=== PATIENT | female | born 1980 | race Caucasian/White ===

== ENCOUNTER → 2021-06-27 10:26 | Outpatient (BNVA) | payer OTHER, SELFPAY | PROVIDERS: Family Provider Family Medicine; PCP Family Medicine; Visit Provider Nurse Practitioner Family | DX: Z20.822 Contact with and (suspected) exposure to COVID-19 (principal); J06.9 Acute upper respiratory infection, unspecified | CPT/HCPCS: 87635 ==

== ENCOUNTER 2022-03-08 15:11 | Emergency (ER) | payer OTHER, SELFPAY ==
[2022-03-08 15:34] VITALS: BP 138/90; PULSE 93; RESP 18; TEMP 36.7; O2SAT 96; BMI 41.1
--- NOTE | 2022-03-08 15:41 | W.ED.WEAKNES ---
HPI - Weakness General: Chief complaint: Weakness Stated complaint: SOB/Nausea/extreme drowsiness/high pulse Time Seen by Provider: 03/08/22 15:41 History of Present Illness: Ms. Campos is a 42-year-old lady with significant past medical history of lupus on Plaquenil who presents emerged department due to generalized illness. Onset of symptoms was subacute approximately 4 days ago. She endorses generalized malaise, aches, lightheadedness, diarrhea worse than her baseline IBS, and decreased p.o. intake. No significant associated abdominal tenderness. She does have cough but no other specific respiratory symptoms. Intensity symptoms is moderate to severe. Course has been worsening. She she felt so lightheaded that she felt however denies loss of consciousness or head strike. She has noticed variability in her blood sugar as well as blood pressure. No other specific changes in health, exacerbating, or alleviating factors identified. Complaint: generalized weakness Onset (ago): day(s) Duration: progressively worsening Severity: moderate Review of Systems General: Reports: 10 or more systems reviewed and unremarkable except in HPI and below PFSH ED PFSH: Medical History (Updated 03/08/22 @ 20:11 by Jordan Cox MD) IBS (irritable bowel syndrome) Lupus Surgical History (Updated 03/08/22 @ 16:10 by Jordan Cox MD) H/O: hysterectomy Social History (Updated 03/08/22 @ 16:04 by Jordan Cox MD) Smoking and tobacco status: current every day smoker Physical Exam Const: COMMON NORMALS: alert GENERAL APPEARANCE: cooperative, well developed and ill appearing (somewhat) HENMT: COMMON NORMALS: normocephalic and atraumatic HEAD & SCALP: normocephalic and atraumatic Eye: COMMON NORMALS: conjunctivae normal CONJUNCTIVA: Yes conjunctivae normal SCLERA: sclerae normal Neck/C-Spine: COMMON NORMALS: supple GENERAL: Yes trachea midline Resp: EFFORT & INSPECTION: Yes able to speak in complete sentences AUSCULTATION: diminished lung sounds Cardio: COMMON NORMALS: regular rate and regular rhythm RATE: regular rate RHYTHM: regular rhythm GI: COMMON NORMALS: Soft to palpation PALPATION: Yes Soft to palpation and No Tenderness to palpation present (GI) PERCUSSION: normal to percussion Extremity: GENERAL: Yes normal exam except as noted and No edema Neuro: COMMON NORMALS: moves all extremities SENSORIUM/ORIENTATION: Yes alert and No Orientation impaired Psych: COMMON NORMALS: mental status grossly normal and Normal thought process present THOUGHT PROCESS: Normal thought process present Course ED course: - Patient was seen and evaluated by me at bedside - Patient placed on cardiac monitors, IV access obtained - Initial evaluation notable for exam as above - Labs and xrays personally interpreted by me -Fluids and symptom treatment ordered. - Labs notable for mild leukocytosis, hemoconcentration. Metabolic panel without acute electrolyte derangement. No evidence of UTI. Positive for coronavirus non-Covid 19. - Imaging notable for no lobar consolidation or pneumothorax - Upon serial reexamination after treatment the patient was improved though patient subsequently developed headache which was treated with migraine cocktail with improvement. - Based on patient history, evaluation, and testing as interpreted the most likely cause of the patient's condition is acute viral syndrome - The results of ED evaluation were discussed with the patient including prescriptions and/or symptomatic cares (if applicable) including appropriate and responsible use, followup plan, and return precautions. The patient verbalized understanding and felt safe for discharge. - Patient discharged in satisfactory condition. Note: Click bubbles or prepopulated peoples in note writing are used for assistance with data collection and billing and are inherently more limited than narrative and other text portions of this note. Please use narrative for additional clinical history and defer to narrative/free test for any case of contradictory information. If information appears in only free text or click bubble it should be considered present or absent as reported. Please contact note short story writer for clarifications of clinical information or contradictory information. MDM is a brief summary, contradictory or erroneous seeming information should be clarified and full note should be reviewed. Vital Signs: Vital signs: Vital Signs Temperature 98.1 F 03/08/22 15:34 Pulse Rate 90 03/08/22 20:23 Respiratory Rate 16 03/08/22 20:23 Blood Pressure 96/62 03/08/22 20:23 Pulse Oximetry 97 03/08/22 20:23 MDM - Weakness Medical Decision Making 42-year-old lady on Plaquenil for lupus presenting with generalized illness. Patient found to have coronavirus that is not COVID-19. Improved with symptom treatment including migraine cocktail. Satisfactory for outpatient management. Medical Records I reviewed the patient's medical records. Lab Data I reviewed the patient's lab results. : 03/08/22 15:55 03/08/22 15:55 Radiology Impressions Chest X-Ray 03/08/22 15:51 IMPRESSION: No acute pulmonary abnormality. Laboratory Results WBC 12.6 10^3/uL (4.0-10.0) H 03/08/22 15:55 RBC 5.14 10^6/uL (4.1-5.3) 03/08/22 15:55 Hgb 15.8 g/dL (11.5-15.3) H 03/08/22 15:55 Hct 46.4 % (37.0-47.0) 03/08/22 15:55 MCV 90.3 fl (81-99) 03/08/22 15:55 MCH 30.7 pg (28.0-34.0) 03/08/22 15:55 MCHC 34.1 g/dL (30.0-36.0) 03/08/22 15:55 RDW 12.2 % (12.1-15.1) 03/08/22 15:55 Plt Count 303 10^3/cmm (130-400) 03/08/22 15:55 MPV 8.9 fL (7.4-10.4) 03/08/22 15:55 Neut % (Auto) 64.7 % 03/08/22 15:55 Lymph % (Auto) 24.5 % 03/08/22 15:55 [place] % (Auto) 6.4 % 03/08/22 15:55 Eos % (Auto) 3.7 % 03/08/22 15:55 Baso % (Auto) 0.5 % 03/08/22 15:55 Neut # (Auto) 8.14 10^3/uL (1.8-7.7) H 03/08/22 15:55 Lymph # (Auto) 3.1 10^3/uL (0.8-4.8) 03/08/22 15:55 [place] # (Auto) 0.8 10^3/uL (0.2-0.9) 03/08/22 15:55 Eos # (Auto) 0.5 10^3/uL (0.0-0.8) 03/08/22 15:55 Baso # (Auto) 0.1 10^3/uL (0.0-0.1) 03/08/22 15:55 Nucleated RBC % (auto) 0 % 03/08/22 15:55 Nucleated RBCs # 0.0 /100WBC 03/08/22 15:55 Sodium 136 mmol/L (136-145) 03/08/22 15:55 Potassium 3.9 mmol/L (3.5-5.1) 03/08/22 15:55 Chloride 101 mmol/L (98-107) 03/08/22 15:55 Carbon Dioxide 24 mmol/L (22-29) 03/08/22 15:55 Anion Gap 14.9 (5-19) 03/08/22 15:55 BUN 5 mg/dL (6-20) L 03/08/22 15:55 Creatinine 0.5 mg/dL (0.5-0.9) 03/08/22 15:55 GFR Calculation 135.3 mL/min (90-130) H 03/08/22 15:55 Glucose 135 mg/dL (65-115) H 03/08/22 15:55 Calculated Osmolality 281 mOsm/kg (285-295) L 03/08/22 15:55 Lactic Acid 2.0 mmol/L (0.5-2.2) 03/08/22 16:21 Calcium 9.0 mg/dL (8.5-10.5) 03/08/22 15:55 Total Bilirubin 0.2 mg/dL (0.15-1.2) 03/08/22 15:55 AST 20 U/L (0-32) 03/08/22 15:55 ALT 30 U/L (0-33) 03/08/22 15:55 Alkaline Phosphatase 97 IU/L (35-105) 03/08/22 15:55 C-Reactive Protein 6.3 mg/L (0.0-4.9) H 03/08/22 15:55 Total Protein 7.6 g/dL (6.6-8.7) 03/08/22 15:55 Albumin 4.1 g/dL (3.5-5.2) 03/08/22 15:55 Globulin 3.5 g/dL (1.3-4.6) 03/08/22 15:55 Procalcitonin 0.04 ng/mL (0-0.5) 03/08/22 15:55 TSH 1.67 uIU/mL (0.27-4.20) 03/08/22 15:55 Urine Color Yellow (Yellow) 03/08/22 17:14 Urine Appearance Hazy (CLEAR) A 03/08/22 17:14 Urine pH 7 (5-7) 03/08/22 17:14 Ur Specific [place] 1.015 (1.005-1.030) 03/08/22 17:14 Urine Protein Neg (Negative) 03/08/22 17:14 Urine Glucose (UA) 2+ (Normal) H 03/08/22 17:14 Urine Ketones Negative (Negative) 03/08/22 17:14 Urine Blood Neg (Negative) 03/08/22 17:14 Urine Nitrate Negative (Negative) 03/08/22 17:14 Urine Bilirubin Neg (Negative) 03/08/22 17:14 Urine Urobilinogen Norm mg/dL (Negative) 03/08/22 17:14 Ur Leukocyte Esterase Negative (Negative) 03/08/22 17:14 Urine RBC Rare /hpf (0-2) 03/08/22 17:14 Urine WBC 0-4 /hpf (0-5) H 03/08/22 17:14 Ur Squamous Epith Cells 5-10 /hpf (0-5) H 03/08/22 17:14 Amorphous Sediment Not Reportable 03/08/22 17:14 Urine Bacteria Trace /hpf (NONE) 03/08/22 17:14 Coronavirus 229E (PCR) Detected (NOT DETECT) A 03/08/22 16:22 SARS-CoV-2 (PCR) Not detected (NOT DETECT) 03/08/22 16:22 Discharge Plan Discharge Patient Disposition: Home Clinical Impression: Acute viral syndrome, Acute dehydration, Coronavirus infection, Diarrhea Condition: Stable Prescriptions: New ondansetron 4 mg tablet,disintegrating 4 mg PO BID PRN (Reason: nausea and vomiting) Qty: 15 0RF azithromycin 500 mg tablet 500 mg PO DAILY Qty: 3 0RF No Action fluoxetine 40 mg capsule 40 mg PO DAILY 0RF Xanax 0.5 mg Tablet 0.5 mg PO BID PRN (Reason: Anxiety) 0RF ergocalciferol (vitamin D2) 1,250 mcg (50,000 unit) capsule 2,500 mcg PO .TWICE WEEKLY 0RF Rx Instructions: Take on Saturday and Saturday Plaquenil 200 mg Tablet 200 mg PO BID 0RF magnesium 200 mg tablet 200 mg PO DAILY 0RF Discharge Orders: Discharge ED (Routine); Ordered 03/08/22 Ordered By: Jordan Cox Referrals: Elza Rosas FNP [Primary Care Provider] - Discharge Diet: Advance as tolerated and Clear Liquid Discharge Activity: Increase activity as tolerated Patient Instructions: Dehydration (ED), Viral Syndrome (ED), General Headache (ED) Activity Restrictions/Additional Instructions: Thank you for visiting the emergency department. You were seen and evaluated for generalized symptoms. You are found to have coronavirus which she is not COVID-19. You were also found to be dehydrated. We are pleased that your symptoms improved with treatment. You may use [id number] medications for your symptoms however please do not exceed the daily recommended dosage and please keep in mind that many namebrand medications contain the same active ingredients. Please follow-up with your primary care provider. Please return to the emergency department for worsening symptoms or anything else that you are concerned about and feel needs emergency department evaluation. Coding Level of Care Code ED Gas Station Supervisor for Paula Fwlaure Exam Comprehensive
--- NOTE | 2022-03-08 15:51 | XR_ITS ---
WS: [id number] XR chest 1V portable [id number] REASON FOR EXAM: cough FINDINGS: Chest is unchanged compared to 02/17/2018. The heart and mediastinum are within normal limits. Calcified granulomatous disease bilaterally No acute pulmonary parenchymal or pleural abnormality. Mild degenerative spondylosis in the mid and lower thoracic spine. XR/XR chest 1V portable [id number] IMPRESSION: No acute pulmonary abnormality.
[2022-03-08] MEDS: lactated ringers 1,000 ML 999 ML IV ×2 (16:09→17:43)
[2022-03-08 16:10] LABS: Basophils # 0.1 10^3/uL (0.0-0.1); Basophils % 0.5 %; Eosinophils # 0.5 10^3/uL (0.0-0.8); Eosinophils % 3.7 %; Hematocrit 46.4 % (37.0-47.0); Hemoglobin 15.8 g/dL (11.5-15.3); Lymphocytes # 3.1 10^3/uL (0.8-4.8); Lymphocytes % 24.5 %; Mean Corpuscular HGB Conc 34.1 g/dL (30.0-36.0); Mean Corpuscular Hemoglobin 30.7 pg (28.0-34.0); Mean Corpuscular Volume 90.3 fl (81-99); Mean Platelet Volume 8.9 fL (7.4-10.4); Monocytes # 0.8 10^3/uL (0.2-0.9); Monocytes % 6.4 %; Neutrophils # 8.14 10^3/uL (1.8-7.7); Neutrophils % 64.7 %; Nucleated Red Blood Cells % 0 %; Platelet Count 303 10^3/cmm (130-400); Red Blood Count 5.14 10^6/uL (4.1-5.3); Red Cell Distribution Width 12.2 % (12.1-15.1); White Blood Count 12.6 10^3/uL (4.0-10.0)
[2022-03-08 16:24] VITALS: BP 145/86; PULSE 88; RESP 18; O2SAT 99
[2022-03-08 16:50] LABS: Procalcitonin 0.04 ng/mL (0-0.5); Thyroid Stimulating Hormone 1.67 uIU/mL (0.27-4.20)
[2022-03-08 17:11] LABS: Alanine Aminotransferase 30 U/L (0-33); Albumin Level 4.1 g/dL (3.5-5.2); Alkaline Phosphatase 97 IU/L (35-105); Anion Gap 14.9 (5-19); Aspartate Amino Transferase 20 U/L (0-32); Blood Urea Nitrogen 5 mg/dL (6-20); C Reactive Protein 6.3 mg/L (0.0-4.9); Carbon Dioxide 24 mmol/L (22-29); Chloride 101 mmol/L (98-107); Globulin 3.5 g/dL (1.3-4.6); Glomerular Filtration Rate 135.3 mL/min (90-130); Glucose 135 mg/dL (65-115); Osmolality Calculated 281 mOsm/kg (285-295); Potassium 3.9 mmol/L (3.5-5.1); Sodium 136 mmol/L (136-145); Total Bilirubin 0.2 mg/dL (0.15-1.2); Total Protein 7.6 g/dL (6.6-8.7)
[2022-03-08] MEDS: acetaminophen 500 mg Tablet 1000 MG PO (17:33)
[2022-03-08] MEDS: ketorolac 30 mg/mL INJ 15 MG IVP (17:34)
[2022-03-08 17:37] VITALS: BP 115/80; BP 119/73; BP 125/71; PULSE 73; PULSE 75; PULSE 76
[2022-03-08 18:03] LABS: Specific Gravity, Urine 1.015 (1.005-1.030); Urine Appearance Hazy (CLEAR); Urine Color Yellow (Yellow); pH Urine 7 (5-7)
[2022-03-08 18:04] LABS: Add Urine Microscopic? YES; Bacteria Urine TRACE /hpf; Bilirubin Urine Neg (Negative); Blood Urine Neg (Negative); Glucose Urine UA 2+ (Normal); Ketones Urine Negative (Negative); Leukocyte Esterase Urine Negative (Negative); Nitrate Urine Negative (Negative); Protein Urine Neg (Negative); RBC Urine RARE /hpf (0-2); Urobilinogen Urine Norm (Negative); WBC Urine 0-4 /hpf (0-5)
[2022-03-08 18:27] LABS: Adenovirus Not Detected (NOT DETECT); Chlamydia Pneumoniae Not Detected (NOT DETECT); Coronavirus 229E,HKU1,NL63,OC4 Detected (NOT DETECT); Human Metapneumovirus Not Detected (NOT DETECT); Human Rhinovirus/Enterovirus Not Detected (NOT DETECT); Influenza A Not Detected (NOT DETECT); Influenza A H1 Not Detected (NOT DETECT); Influenza A H1-2009 Not Detected (NOT DETECT); Influenza A H3 Not Detected (NOT DETECT); Influenza B Not Detected (NOT DETECT); Mycoplasma Pneumoniae Not Detected (NOT DETECT); Parainfluenza Virus Type 1 Not Detected (NOT DETECT); Parainfluenza Virus Type 2 Not Detected (NOT DETECT); Parainfluenza Virus Type 3 Not Detected (NOT DETECT); Parainfluenza Virus Type 4 Not Detected (NOT DETECT); Respiratory Syncytial Virus A Not Detected (NOT DETECT); Respiratory Syncytial Virus B Not Detected (NOT DETECT); SARS-COV-2 Not Detected (NOT DETECT)
[2022-03-08 19:41] VITALS: BP 102/73; PULSE 80; RESP 18; O2SAT 96
[2022-03-08] MEDS: diphenhydrAMINE 50 mg/mL SDV 1mL 25 MG IVP (19:43)
[2022-03-08] MEDS: metoclopramide 5 mg/mL SDV 2 mL 10 MG IVP (19:43)
[2022-03-08 20:23] VITALS: BP 130/74; BP 96/62; PULSE 60; PULSE 90; RESP 15; RESP 16; O2SAT 97; O2SAT 98
== END 2022-03-08 20:25 | disposition home or self-care (01) ==
PROVIDERS: Emergency Provider Emergency Medicine; PCP Nurse Practitioner Family
DX: B34.9 Viral infection, unspecified (principal); R19.7 Diarrhea, unspecified
CPT/HCPCS: 71045; 80053; 81001; 83605; 84145; 84443; 85025; 86140; 87635; 96361; 96374; 96375; 99284; J1200; J1885; J2765

== ENCOUNTER 2022-05-11 14:43 | Emergency (ER) | payer OTHER, SELFPAY ==
[2022-05-11 15:00] VITALS: BP 120/78; PULSE 99; RESP 98; TEMP 36.9; O2SAT 98; BMI 41.1
--- NOTE | 2022-05-11 15:31 | ECG_ITS ---
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 Measurements Intervals [place] Rate: 98 P: 67 UT: 138 QRS: 23 QRSD: 90 T: 42 QT: 358 QTc: 457 Interpretive Statements SINUS RHYTHM POSSIBLE ANTERIOR MYOCARDIAL INFARCTION , OF INDETERMINATE AGE [30 ms Q WAVE IN V3/V4, OR R < 0.2 mV IN V4] Compared to ECG 02/17/2018 02:05:32 Myocardial infarct finding now present Electronically Signed On 05-11-2022 16:58:16 CDT by Grayson Brday M.D. [id number]
--- NOTE | 2022-05-11 15:31 | XRR_ITS ---
PROCEDURE INFORMATION: Exam: XR Chest Exam date and time: 05/11/2022 3:48 PM Age: 42 years old Clinical indication: Pain; Angina pectoris; Additional info: Cp TECHNIQUE: Imaging protocol: XR of the chest. Views: 1 view. COMPARISON: CR XR chest 1V portable [id number] 03/08/2022 4:00 PM FINDINGS: Lungs: Unremarkable. No consolidation. Pleural spaces: Unremarkable. No pleural effusion. No pneumothorax. Heart/Mediastinum: Unremarkable. No cardiomegaly. Bones/joints: Unremarkable. XR/XR chest 1V portable [id number] IMPRESSION: No acute findings.
--- NOTE | 2022-05-11 15:32 | W.ED.CHESTPA ---
HPI - Chest Pain General: Chief Complaint: Chest Pain Stated Complaint: Chest Pains, SOB, Dizziness Time Seen by Provider: 05/11/22 15:17 Source: patient Mode of arrival: ambulatory Limitations: no limitations History of Present Illness: This patient presents to our emergency department because of concerns about central chest pain. She states the pain began yesterday and it has been there since that time. She relates that it came on during an emotional episode regarding her daughter. She states her daughter is now in a safe spot and she feels more relieved about that situation. She is describes the pain as central in location not like something she is experienced before. She felt anxious and a little bit breathless yesterday but that is improved. She denies any heartburn history or heartburn sensation. She has had some upper congestion and typical seasonal allergy symptoms. She is a tobacco user smokes 3 to 4 cigarettes every few days. She does have a family history of COPD but in family of smokers. She denies any exogenous hormone, long travel, other risk for his thromboembolic disease and has never had any issues with thromboembolic issues. She has been eating and drinking normally. No nausea vomiting or diarrhea. No radiation of her pain no recent exertional activity or physical activity that might have caused any musculoskeletal issues. MD complaint: chest pain Pain location: parasternal Pain radiation: none Severity: mild Quality: heaviness Relieving factors: nothing Associated symptoms: Deny fever(s), palpitations or syncope Risk Factors: Coronary artery disease risk factors: smoking history Review of Systems Const: Denies: fever(s), chills or body aches Eyes: Denies: change in vision or blurry vision ENMT: Denies: throat pain or odynophagia Card: Reports: chest pain; Denies: palpitations, irregular heart rhythm, lightheadedness or syncope Resp: Denies: productive cough or non-productive cough : Denies: flank pain, difficulty voiding or dysuria Musc: Denies: neck pain, back pain, extremity pain or extremity swelling Skin/Breast: Denies: rash or pruritus Neuro: Denies: headache(s), numbness in extremities, weakness in extremities, dizziness, vertigo or confusion Psych: Reports: anxiety; Denies: depression, mood swings or panic attacks Michele/Lymph: Denies: easy bruising or easy bleeding PFS ED PFSH: Medical History IBS (irritable bowel syndrome) Lupus Surgical History H/O: hysterectomy Social History Smoking and tobacco status: current every day smoker Physical Exam Narrative: EXAM NARRATIVE: He is alert makes good eye contact. Speech is goal-directed. Const: COMMON NORMALS: no acute distress and patient oriented x3 GENERAL APPEARANCE: cooperative and comfortable HENMT: COMMON NORMALS: normocephalic, Normal nasal mucous membranes and turbinates present and moist oral mucous membranes HEAD & SCALP: normocephalic NOSE: Normal nasal mucous membranes and turbinates present Eye: COMMON NORMALS: Equal, round and reactive pupils present and EOMs intact bilaterally PUPIL: Yes Equal, round and reactive pupils present Neck/C-Spine: COMMON NORMALS: full ROM, no lymphadenopathy and supple Chest: COMMONS NORMALS: normal inspection of the chest and normal palpation of entire chest wall Resp: COMMON NORMALS: normal respiratory effort, No use of accessory muscles and clear to auscultation bilaterally AUSCULTATION: clear to auscultation bilaterally Cardio: COMMON NORMALS: regular rate, regular rhythm, No murmurs present (Cardio) and Peripheral pulses 2+ throughout RATE: regular rate RHYTHM: regular rhythm PERIPHERAL PULSES: Peripheral pulses 2+ throughout GI: COMMON NORMALS: Normal to inspection, nondistended, normoactive bowel sounds present, Soft to palpation and non-tender PALPATION: Yes Soft to palpation : COMMON NORMALS: Yes no CVA tenderness BLADDER/KIDNEY EXAM: Yes no CVA tenderness Back/Pelvis: COMMON NORMALS: no CVA tenderness, thoracic and lumbar spine normal to inspection, no thoracic nor lumbar tenderness, thoraco-lumbar ROM normal and straight leg raise negative bilaterally Extremity: COMMON NORMALS: normal to inspection, capillary refill normal, no joint enlargement, no calf tenderness and no pedal edema Neuro: COMMON NORMALS: patient oriented x3, moves all extremities, no focal motor deficits and no sensory deficits noted Psych: COMMON NORMALS: mental status grossly normal and cooperative Skin: COMMON NORMALS: no rashes or lesions noted, turgor normal and no jaundice GENERAL SKIN EXAM: no rashes or lesions noted and turgor normal Course Reevaluation(s): Reevaluation #1: Patient remained stable. Repeat troponin as well as repeat electrocardiograms are unremarkable for any acute changes. She is stable and denies any ongoing complaints at this time. No new or focal findings on repeat evaluation. Time: 19:22 Vital Signs: Vital signs: Vital Signs Temperature 98.4 F 05/11/22 15:00 Pulse Rate 84 05/11/22 17:41 Respiratory Rate 14 05/11/22 17:41 Blood Pressure 131/79 05/11/22 17:41 Pulse Oximetry 95 05/11/22 17:41 MDM - Chest Pain Medical Decision Making PERC negative. This patient who presented with chest pain that she associated with emotional upset that began yesterday and persisted throughout today has been evaluated with serial biomarkers, serial EKGs other ancillary studies which are reassuring do not support diagnosis of ACS or other emergency medical conditions at this time. I think she exceedingly low risk of any ACS, PE etc. She has a history of anxiety and is certainly given her emotional events that certainly could be a contributing factor to her symptoms at this time. Stable at this time to be discharged with close follow-up. Return precautions were reviewed in detail with the patient. She acknowledged our discussion. Medical Records I reviewed the patient's medical records. Lab Data I reviewed the patient's lab results. : 05/11/22 15:23 05/11/22: Radiology Impressions Chest X-Ray 05/11/22 15:31 IMPRESSION: No acute findings. Laboratory Results WBC 6.4 10^3/uL (4.0-10.0) 05/11/22: RBC 4.98 10^6/uL (4.1-5.3) 05/11/22 15: Hgb 15.2 g/dL (11.5-15.3) 05/11/22: Hct 43.0 % (37.0-47.0) 05/11/22: MCV 86.3 fl (81-99) 05/11/22: MCH 30.5 pg (28.0-34.0) 05/11/22: MCHC 35.3 g/dL (30.0-36.0) 05/11/22: RDW 12.4 % (12.1-15.1) 05/11/22: Plt Count 258 10^3/cmm (130-400) 05/11/22 15: MPV 8.8 fL (7.4-10.4) 05/11/22 15: Neut % (Auto) 59.1 % 05/11/22 15: Lymph % (Auto) 30.5 % 05/11/22 15: [place] % (Auto) 7.5 % 05/11/22: Eos % (Auto) 2.3 % 05/11/22 15: Baso % (Auto) 0.3 % 05/11/22: Neut # (Auto) 3.77 10^3/uL (1.8-7.7) 05/11/22: Lymph # (Auto) 2.0 10^3/uL (0.8-4.8) 05/11/22: [place] # (Auto) 0.5 10^3/uL (0.2-0.9) 05/11/22: Eos # (Auto) 0.2 10^3/uL (0.0-0.8) 05/11/22: Baso # (Auto) 0.0 10^3/uL (0.0-0.1) 05/11/22: Nucleated RBC % (auto) 0 % 05/11/22: Nucleated RBCs # 0.0 /100WBC 05/11/22 15: Sodium 139 mmol/L (136-145) 05/11/22 15: Potassium 3.6 mmol/L (3.5-5.1) 05/11/22: Chloride 102 mmol/L (98-107) 05/11/22 15: Carbon Dioxide 26 mmol/L (22-29) 05/11/22 15: Anion Gap 14.6 (5-19) 05/11/22 15: BUN 6 mg/dL (6-20) 05/11/22 15: Creatinine 0.5 mg/dL (0.5-0.9) 05/11/22 15: GFR Calculation 135.3 mL/min (90-130) H 05/11/22 15:23 Glucose 156 mg/dL (65-115) H 05/11/22 15:23 Calculated Osmolality 289 mOsm/kg (285-295) 05/11/22 15: Calcium 8.9 mg/dL (8.5-10.5) 05/11/22 15: Total Bilirubin 0.2 mg/dL (0.15-1.2) 05/11/22 15:23 AST 21 U/L (0-32) 05/11/22 15: ALT 34 U/L (0-33) H 05/11/22 15: Alkaline Phosphatase 86 IU/L (35-105) 05/11/22 15:23 Troponin T Baseline 6 ng/L (0-10) 05/11/22 15: Troponin T 120 Minute 6.00 ng/L (0-10) 05/11/22 17:49 Total Protein 6.9 g/dL (6.6-8.7) 05/11/22 15: Albumin 4.3 g/dL (3.5-5.2) 05/11/22 15: Globulin 2.6 g/dL (1.3-4.6) 05/11/22 15:23 EKG Data EKG 1: I personally reviewed and interpreted this EKG as follows: EKG interpretation time: 15:00 Interpretation: Patient has normal sinus rhythm 90 bpm. She has loss of anterior forces suggestive of possible prior anterior wall [place]. Normal axis. No acute ST-T wave changes noted. No prior tracings available. EKG 2: EKG interpretation time: 17:06 Interpretation: Second EKG this visit was reviewed. She has a sinus rhythm of 92 bpm. She has normal [place] QRS interval and duration and normal QTC. She has normal axis. She has slightly diminished R waves anteriorly's but no evidence of any acute ST-T wave changes. This is unchanged from previous tracing this date. Discharge Plan Discharge Patient Disposition: Home Clinical Impression: Chest pain Condition: Stable Prescriptions: No Action fluoxetine 40 mg capsule 40 mg PO DAILY 0RF alprazolam [Xanax] 0.5 mg Tablet 0.5 mg PO BID PRN (Reason: Anxiety) 0RF ergocalciferol (vitamin D2) 1,250 mcg (50,000 unit) capsule 2,500 mcg PO .TWICE WEEKLY 0RF Rx Instructions: Take on Saturday and Saturday hydroxychloroquine [Plaquenil] 200 mg Tablet 200 mg PO BID 0RF magnesium 200 mg tablet 200 mg PO DAILY 0RF ondansetron 4 mg tablet,disintegrating 4 mg PO BID PRN (Reason: nausea and vomiting) Qty: 15 0RF Flonase Allergy Relief 50 mcg/actuation [place],Suspension 2 spray INTRANASAL DAILY 0RF Rx Instructions: administer into each nostril Xyzal 5 mg Tablet 5 mg PO DAILY 0RF Mucinex 600 mg Tablet Extended Release 12hr 600 mg PO Q12H PRN (Reason: Congestion) 0RF Discharge Orders: Discharge ED (Routine); Ordered 05/11/22 Ordered By: Raj Roque Referrals: Elza Rosas FNP [Primary Care Provider] - Discharge Diet: Usual diet Discharge Activity: Resume usual activity Patient Instructions: Opioid Safety Activity Restrictions/Additional Instructions: Continue all your usual medications. Seek care if you develop any sustained chest pain, shortness of breath, other concerning symptoms either at this or the nearest emergency department. See your regular primary care transition manager in 2 to 3 weeks for repeat check and follow-up. Coding Level of Care Code ED Practical Nurse for Paula Fwlaure Exam Comprehensive
[2022-05-11 15:42] LABS: Basophils % 0.3 %; Eosinophils # 0.2 10^3/uL (0.0-0.8); Eosinophils % 2.3 %; Hemoglobin 15.2 g/dL (11.5-15.3); Lymphocytes % 30.5 %; Mean Corpuscular HGB Conc 35.3 g/dL (30.0-36.0); Mean Corpuscular Hemoglobin 30.5 pg (28.0-34.0); Mean Corpuscular Volume 86.3 fl (81-99); Mean Platelet Volume 8.8 fL (7.4-10.4); Monocytes # 0.5 10^3/uL (0.2-0.9); Monocytes % 7.5 %; Neutrophils # 3.77 10^3/uL (1.8-7.7); Neutrophils % 59.1 %; Nucleated Red Blood Cells % 0 %; Platelet Count 258 10^3/cmm (130-400); Red Blood Count 4.98 10^6/uL (4.1-5.3); Red Cell Distribution Width 12.4 % (12.1-15.1); White Blood Count 6.4 10^3/uL (4.0-10.0)
[2022-05-11 16:01] LABS: Alanine Aminotransferase 34 U/L (0-33); Albumin Level 4.3 g/dL (3.5-5.2); Alkaline Phosphatase 86 IU/L (35-105); Anion Gap 14.6 (5-19); Aspartate Amino Transferase 21 U/L (0-32); Blood Urea Nitrogen 6 mg/dL (6-20); Calcium 8.9 mg/dL (8.5-10.5); Carbon Dioxide 26 mmol/L (22-29); Chloride 102 mmol/L (98-107); Globulin 2.6 g/dL (1.3-4.6); Glomerular Filtration Rate 135.3 mL/min (90-130); Glucose 156 mg/dL (65-115); Osmolality Calculated 289 mOsm/kg (285-295); Potassium 3.6 mmol/L (3.5-5.1); Sodium 139 mmol/L (136-145); Total Bilirubin 0.2 mg/dL (0.15-1.2); Total Protein 6.9 g/dL (6.6-8.7)
[2022-05-11 16:02] LABS: Troponin(5th) Baseline 6 ng/L (0-10)
[2022-05-11] MEDS: famotidine 20 mg/2 mL INJ 40 MG IVP (16:10)
[2022-05-11 16:44] VITALS: BP 138/71; PULSE 90; RESP 14; O2SAT 97
--- NOTE | 2022-05-11 17:06 | PC.NURSE ---
EKG done at 1700 and shown to ER doctor
--- NOTE | 2022-05-11 17:31 | ECG_ITS ---
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 Measurements Intervals [place] Rate: 92 P: 56 [place]: 154 QRS: 2 QRSD: 87 T: 39 QT: 361 QTc: 447 Interpretive Statements SINUS RHYTHM POSSIBLE ANTERIOR MYOCARDIAL INFARCTION , OF INDETERMINATE AGE [30 ms Q WAVE IN V3/V4, OR R < 0.2 mV IN V4] Compared to ECG 05/11/2022 14:56:32 No significant changes Electronically Signed On 05-11-2022 17:05:44 CDT by Grayson Brady M.D. [id number]
[2022-05-11] MEDS: LORazepam 2 mg/mL INJ 1 mL 1 MG IVP (17:33)
[2022-05-11 17:41] VITALS: BP 131/79; PULSE 84; RESP 14; O2SAT 95
[2022-05-11 19:40] VITALS: BP 148/91; PULSE 98; O2SAT 97
[2022-05-11 19:52] LABS: Troponin 5 2HR Delta 0 ABS# (0-10)
== END 2022-05-11 19:42 | disposition home or self-care (01) ==
PROVIDERS: Emergency Provider Emergency Medicine; PCP Nurse Practitioner Family
DX: R07.9 Chest pain, unspecified (principal); F41.9 Anxiety disorder, unspecified
CPT/HCPCS: 71045; 80053; 84484; 85025; 93005; 96374; 96375; 99284; J2060; J3490